=== PATIENT | male | born 1945 | race Caucasian/White ===

== ENCOUNTER 2017-03-12 12:38 | Emergency (ER) | payer OTHER ==
[~2017-03-12] VITALS: Ht 177.8 cm; Wt 88.5 kg
[~2017-03-12 12:38] MED LIST: ASPIRIN EC325 M1 PO; ATORVASTATIN CA40 MG PO; ENALAPRIL MALEA10 M1 PO; FLEXERIL PO; MOBIC15 MG PO; NORCO 5-325 TA1 EACH PO; ZOFRAN ODT4 MG PO
[2017-03-12 12:57] LABS: URINE BILIRUBIN NEGATIVE (Negative); URINE BLOOD NEGATIVE (Negative); URINE COLOR YELLOW; URINE GLUCOSE-RANDOM* NEGATIVE (Negative); URINE KETONES NEGATIVE (Negative); URINE NITRITE NEGATIVE (Negative); URINE PROTEIN (DIPSTICK) 1+ (Negative); URINE SPECIFIC GRAVITY >= 1.030 (1.003-1.035); URINE UROBILINOGEN 0.2 E.U./dl (0.2-1.0)
[2017-03-12] MEDS ORDERED: TOPROL XL25 MG PO (12:57)
[2017-03-12 13:12] LABS: BACTERIA 1-9 Few /HPF (None Seen); CASTS None Seen /LPF (None Seen); CRYSTALS None Seen /LPF (None Seen); SQUAMOUS 0-3 Few /LPF (0-3); URINE RBC None Seen /HPF (0-2); URINE WBC None Seen /HPF (0-5)
[2017-03-12 13:17] LABS: HEMATOCRIT 40.7 % (42.0-52.0); HEMOGLOBIN 13.6 gm/dL (14.0-18.0); MCH 28.8 pg (26.0-34.0); MCHC 33.4 g/dL (28.0-37.0); MCV 86.3 fL (80.0-100.0); PLATELET COUNT 188 thou/uL (150-400); RBC 4.72 mil/uL (4.50-6.00); RDW 14.7 % (10.5-14.5); WBC 8.8 thou/uL (4.0-11.0)
[2017-03-12 13:21] LABS: MANUAL DIFF YES
[2017-03-12 13:26] LABS: CREATININE 1.3 mg/dL (0.7-1.3); POTASSIUM 4.3 mmol/L (3.5-5.1)
[2017-03-12 13:37] LABS: ABSOLUTE NEUTROPHILS 7.6 thou/uL (1.4-8.2); PLATELET ESTIMATE NORMAL; TOTAL CELL COUNT 100
[2017-03-12] MEDS ORDERED: HYDROCODONE-AP1 EAC6 PO (14:09)
[2017-03-12] MEDS ORDERED: VALIUM5 MG PO (14:09)
[2017-03-12 14:23] VITALS: BP 140/90
== END 2017-03-12 14:24 | disposition home or self-care (01) ==
LOC: ER 12:38
PROVIDERS: Physician Assistant
DX: M54.5 Low back pain (principal); I10 Essential (primary) hypertension; E78.00 Pure hypercholesterolemia, unspecified; Z95.5 Presence of coronary angioplasty implant and graft; F10.99 Alcohol use, unspecified with unspecified alcohol-induced disorder; Z95.1 Presence of aortocoronary bypass graft

== ENCOUNTER 2018-10-10 06:18 | Inpatient (IN) | payer OTHER ==
[~2018-10-10] VITALS: Ht 177.8 cm; Wt 90.7 kg
[2018-10-10] VITALS (9 sets, daily range): BP systolic 109–157; BP diastolic 73–94
[~2018-10-10 06:18] MED LIST changes: +HYDROCODONE-AP1 EAC6 PO; +TOPROL XL25 MG PO; +VALIUM5 MG PO
[2018-10-10 06:43] LABS: ABSOLUTE NEUTROPHILS 3.6 thou/uL (1.4-8.2); BASOPHILS 0.9 % (0.0-2.0); EOSINOPHILS 2.8 % (0.0-3.0); HEMOGLOBIN 13.7 gm/dL (14.0-18.0); LYMPHOCYTES 24.6 % (24.0-44.0); MCH 29.6 pg (26.0-34.0); MCHC 33.3 g/dL (28.0-37.0); MCV 88.8 fL (80.0-100.0); MONOCYTES 11.4 % (1.0-8.0); PLATELET COUNT 204 thou/uL (150-400); POLYS 60.3 % (36.0-66.0); RBC 4.62 mil/uL (4.50-6.00); RDW 14.6 % (10.5-14.5); WBC 5.9 thou/uL (4.0-11.0)
[2018-10-10 06:54] LABS: ANION GAP 9 mmol/L (7-16); BUN 20 mg/dL (7-18); CALCIUM 9.7 mg/dL (8.5-10.1); CHLORIDE 103 mmol/L (98-107); CO2 26 mmol/L (21-32); CREATININE 1.5 mg/dL (0.7-1.3); GLUCOSE 117 mg/dL (74-106); POTASSIUM 4.1 mmol/L (3.5-5.1); SODIUM 138 mmol/L (136-145)
[2018-10-10 06:59] LABS: APTT 26.4 Seconds (24.5-32.8); PROTIME 10.7 Seconds (9.3-11.4)
[2018-10-10 07:05] LABS: ALBUMIN 4.4 g/dL (3.4-5.0); DIRECT BILIRUBIN 0.3 mg/dL (<0.1-0.3); MAGNESIUM 2.2 mg/dL (1.8-2.4); SGOT 23 U/L (15-37); SGPT 31 U/L (30-65); TOTAL BILIRUBIN 1.4 mg/dL (<0.1-1.0); TOTAL PROTEIN 7.6 g/dL (6.4-8.2); TROPONIN-I <0.06 ng/mL (<0.06)
--- NOTE | 2018-10-10 08:59 | EKG ---
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: CLAUDIA : 1945 Requested By: Order Number: [id number] MD: Robin Flower Measurements Intervals [place] Rate: 136 P: NC: QRS: 11 QRSD: 146 T: 179 QT: 324 QTc: 488 Interpretive Statements Atrial fibrillation Left bundle branch block Compared to ECG 03/06/2008 08:19:41 Left bundle-branch block now present Sinus rhythm no longer present Electronically Signed On 10-10-2018 8:59:10 CDT by Robin Flower [email or web address] ��������������������������������������������� <ELECTRONICALLY SIGNED> ���������������������������������������� By: Robin Flower MD, [facility] ��������������������������������������������� 10/10/18 0859 627 7 Robin Flower MD, FACC /EPI
--- NOTE | 2018-10-10 16:50 | 2DMMODE ---
[facility] [address] [place] [place] [address] 2 D/M-MODE ECHOCARDIOGRAM Name: JENNIFER LIN Room #: 201-P [facility] IN ..#: [id number] ������������� Admission: 10/10/18 ������������� Attend Phys: Farzad Villatoro MD Discharge: ��� ������������� ��� Date of : 49 Date of Service: 10/10/18 1650 �� Report #: [id number] �������� ��������������������������������������������[id number] THIS REPORT FOR: //name// APPROVED REPORT Study performed: 10/10/2018 13:13:58 EXAM: Comprehensive 2D, Doppler, and color-flow Echocardiogram Patient Location: Bedside Room #: 201 Status: routine BSA: 2.09 HR: 87 bpm BP: 136/87 mmHg Rhythm: Atrial Fibrillation Other Information Study Quality: Technically Limited Technically limited study due to poor endocardial definition. Risk Factors: Cardiac Risk Factors: HTN Indications Dyspnea S/P CABG x2 (2000) Echo Enhancing Agent Indication: Endocardial border delineation Agent(s) / Amount(s) Used: Optison 3 cc 2D Dimensions IVSd: 12.06 (7-11mm) LVOT Diam: 18.00 (18-24mm) LVDd: 42.74 mm PWd: 12.14 (7-11mm) Ascending Ao: 30.70 (22-36mm) LVDs: 30.12 (25-40mm) Aortic Root: 20.98 mm Volumes Left Atrial Volume (Systole) Single Plane 4CH: 60.83 mL Single Plane 2CH: 61.17 mL LA ESV Index: 32.00 mL/m2 Aortic Valve AoV Peak Christopher.: 1.50 m/s [facility] [address] [place] [address] 2 D/M-MODE ECHOCARDIOGRAM Name: JENNIFER LIN Ezio Room #: 201-P [facility] IN [facility]#: [id number] ������������� Admission: 10/10/18 ������������� Attend Phys: Farzad Villatoro MD Discharge: ��� ������������� ��� Date of : 49 Date of Service: 10/10/18 1650 �� Report #: [id number] �������� ��������������������������������������������[id number] AO Peak Gr.: 9.47 mmHg LVOT Max P.42 mmHg LVOT Max V: 0.77 m/s BRANDT Vmax: 1.28 cm2 Pulmonary Valve PV Peak Christopher.: 1.20 m/s PV Peak Gr.: 5.80 mmHg MI End Vmax: 2.12 m/s Tricuspid Valve TR Peak Christopher.: 2.73 m/s RAP Estimate: 15.00 mmHg TR Peak Gr.: 29.77 mmHg PA Pressure: 45.00 mmHg Left Ventricle The left ventricle is normal size. There is normal LV segmental wall motion. Mild concentric left ventricular hypertrophy. Left ventricular systolic function is normal. The left ventricular ejection fraction is within the normal range. LVEF is 55-60%. This study is not technically sufficient to allow evaluation of the LV diastolic function due to atrial fibrillation. Right Ventricle The right ventricle is normal size. The right ventricular systolic function is normal. Atria Left atrium is dilated. The right atrium size is normal. Aortic Valve The aortic valve is normal in structure. No aortic regurgitation is present. There is no aortic valvular stenosis. Mitral Valve The mitral valve leaflets are calcified. Moderate mitral regurgitation. Calculated mitral valve area is 2.3 cm2 with maximum pressure gradient of 15 mmHg and mean pressure gradient of 5.5 mmHg. Tricuspid Valve The tricuspid valve is normal in structure. Moderate to severe tricuspid regurgitation. Pulmonary artery pressure is 45 mmHg. Pulmonic Valve The pulmonary valve is normal in structure. Moderate pulmonic regurgitation. [facility] [address] [place] [address] 2 D/M-MODE ECHOCARDIOGRAM Name: JENNIFER LIN Room #: 201-P [facility] IN ..#: [id number] ������������� Admission: 10/10/18 ������������� Attend Phys: Farzad Villatoro MD Discharge: ��� ������������� ��� Date of : 49 Date of Service: 10/10/18 1650 �� Report #: [id number] �������� ��������������������������������������������[id number] Great Vessels The aortic root is normal in size. The ascending aorta is normal in size. IVC is dilated and collapses <50% with inspiration. Pericardium There is no pericardial effusion. Pleural effusion is present. <Conclusion> Left ventricular systolic function is normal. There is normal LV segmental wall motion. LVEF 55-60%. Left atrium is dilated. The aortic valve is normal in structure. No aortic regurgitation or stenosis The mitral valve leaflets are calcified. Moderate mitral regurgitation. Mild-moderate stenosis Calculated mitral valve area is 2.3 cm2, peak 15 mmHg and mean pressure gradient of 5.5 mmHg. Moderate regurgitation. Pulmonary artery pressure is 45 mmHg. There is no pericardial effusion. ��������������������������������������������� <ELECTRONICALLY SIGNED> ���������������������������������������� By: Robin Flower MD, [facility] ��������������������������������������������� 10/10/181649 49 49 Robin Flower MD, FAC /INF
[2018-10-11 03:49] LABS: CALCIUM 9.2 mg/dL (8.5-10.1); CREATININE 1.6 mg/dL (0.7-1.3); MAGNESIUM 2.1 mg/dL (1.8-2.4); POTASSIUM 4.5 mmol/L (3.5-5.1)
[2018-10-11 04:03] VITALS: BP 106/80
--- NOTE | 2018-10-11 04:28 | NUR ---
ASSUMED PT CARE AT 1900. PT A/OX4, VITAL SIGNS STABLE, ASSESSMENT CHARTED. NO COMPLAINTS OF PAIN. AFIB ON THE MONITOR, RATE CONTROLLED. PT RESTED COMFORTABLY IN BED THROUGHOUT THE NIGHT. PROGRESSING TOWARD PLAN OF CARE. WILL CONTINUE TO MONITOR.
[2018-10-11 05:00] LABS: HEMATOCRIT 37.7 % (42.0-52.0); HEMOGLOBIN 12.4 gm/dL (14.0-18.0); MCH 29.7 pg (26.0-34.0); MCHC 32.8 g/dL (28.0-37.0); MCV 90.5 fL (80.0-100.0); RBC 4.16 mil/uL (4.50-6.00); RDW 14.7 % (10.5-14.5); WBC 5.8 thou/uL (4.0-11.0)
[2018-10-11 08:14] VITALS: BP 122/72
--- NOTE | 2018-10-11 08:14 | EKG ---
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1945 Requested By: Robin Flower Order Number: [id number] MD: Robin Flower Measurements Intervals [place] Rate: 121 P: 0 PA: 236 QRS: 10 QRSD: 148 T: 178 QT: 367 QTc: 521 Interpretive Statements Atrial fibrillation with a rapid ventricular response Left bundle branch block Compared to ECG 10/10/2018 06:28:07 No significant change was found Electronically Signed On 10-11-2018 8:14:23 CDT by Robin Flower [email or web address] ��������������������������������������������� <ELECTRONICALLY SIGNED> ���������������������������������������� By: Robin Flower MD, [facility] ��������������������������������������������� 10/11/18 0814 1418 141 Robin Flower MD, [facility] /EPI
[2018-10-11 11:06] VITALS: BP 116/72
--- NOTE | 2018-10-11 11:06 | NUR ---
ASSUMED PATIENT CARE, ASSESSMENT CHARTED, VSS, SINUS TACH, NO COMPLAINTS OF PAIN OR NAUSEA, AZITHROMYCIN INFUSED, PATIENT OFF FLOOR FOR CHEST XRAY.
--- NOTE | 2018-10-11 14:11 | NUR ---
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 He cont to work and drive. THerapy evals noted and PT dc patient. Patient anticipates dc home with no needs.
[2018-10-11 15:19] VITALS: BP 109/79
[2018-10-11 20:18] VITALS: BP 133/76
--- NOTE | 2018-10-12 04:00 | NUR ---
ASSUMED PT CARE AT 1900. VSS. PT A&0X4. NO COMPLAINTS OF PAIN OR DISTRESS. PT REMAINS IN AFIB, WITH RATED THAT HAS BEEN LESS THAN 111 ALL NIGHT. PT STABLE, SLEPT WELL ALL NIGHT, WILL CONTINUE TO MONITOR
[2018-10-12 04:04] LABS: CALCIUM 9.4 mg/dL (8.5-10.1); CREATININE 1.7 mg/dL (0.7-1.3); POTASSIUM 4.3 mmol/L (3.5-5.1)
[2018-10-12 04:36] VITALS: BP 129/69
[2018-10-12 06:56] VITALS: BP 115/73
[2018-10-12] MEDS ORDERED: METOPROLOL SUCC50 MG PO (10:39)
[2018-10-12] MEDS ORDERED: CARDIZEM CD240 MG PO (10:39)
[2018-10-12] MEDS ORDERED: DEMADEX20 MG PO (10:39)
[2018-10-12] MEDS ORDERED: XARELTO15 MG PO (10:39)
[2018-10-12 11:50] VITALS: BP 127/67
[2018-10-12 11:55] VITALS: BP 127/67
--- NOTE | 2018-10-12 12:24 | NUR ---
ASSUMED CARE OF PT AT SHIFT CHANGE. ASSESSMENTS CHARTED. MEDS GIVEN PER AUG. PT ALERT AND ORIENTED, VSS, AFIB WITH BBB ON MONITOR. O2 SATS WNL ON ROOM AIR. DENIES PAIN, SOB, CP. UP AD MYRON. DC ORDERS ACKNOWLEDGED AND IMPLEMENTED. DC PAPERWORK DISCUSSED WITH PT BY ORIENTEE NURSE DIMITRY. COMMUNICATES UNDERSTANING. SCRIPTS GIVEN. IV REMOVED, TELE REMOVED. PT LEFT UNIT ACCOMPANIED BY NURSING STAFF AT APPROX 1220 WITH ALL BELONGINGS.
== END 2018-10-12 12:20 | disposition home or self-care (01) | DRG 291 ==
LOC: ER 06:18 → 2N 08:08 → EROBS 08:08 → 2N 09:29
PROVIDERS: Emergency Medicine; Hospitalist; ADMIT Internal Medicine
DX: I13.0 Hypertensive heart and chronic kidney disease with heart failure and stage 1 through stage 4 chronic kidney disease, or unspecified chronic kidney disease (principal); I50.31 Acute diastolic (congestive) heart failure; J18.9 Pneumonia, unspecified organism; D68.59 Other primary thrombophilia; E03.9 Hypothyroidism, unspecified; I25.10 Atherosclerotic heart disease of native coronary artery without angina pectoris; I48.0 Paroxysmal atrial fibrillation; N18.9 Chronic kidney disease, unspecified; I44.7 Left bundle-branch block, unspecified; Z95.1 Presence of aortocoronary bypass graft; Z79.1 Long term (current) use of non-steroidal anti-inflammatories (NSAID); Z79.899 Other long term (current) drug therapy; Z87.891 Personal history of nicotine dependence; Z79.82 Long term (current) use of aspirin
CPT/HCPCS: 10081

== ENCOUNTER → 2018-11-17 | Outpatient (CLI) | payer OTHER ==
[~2018-11-17] VITALS: Ht 175.3 cm; Wt 84.8 kg
[~2018-11-17] MED LIST changes: +CARDIZEM CD240 MG PO; +DEMADEX20 MG PO; +KLOR-CON 1010 MEQ PO; +METOPROLOL SUCC50 MG PO; +PACERONE 200 M200 M1 PO; +XARELTO15 MG PO
[2018-11-17 08:07] VITALS: BP 149/101
--- NOTE | 2018-11-17 09:34 | TEE ---
[facility] [address] [place] [address] TRANSESOPHAGEAL ECHOCARDIOGRAM Name: JENNIFER LIN Room #: REG SammJosi#: [id number] ������������� Admission: 11/17/18 ������������� Attend Phys: Robin Flower, Discharge: ��� ������������� ��� Date of : 49 Date of Service: 11/17/18 0934 �� Report #: [id number] �������� ��������������������������������������������[id number] THIS REPORT FOR: //name// APPROVED REPORT Study performed: 11/17/2018 08:48:25 EXAM: Transesophageal Echocardiogram and Cardioversion Patient Location: holding Status: routine BSA: 2.01 HR: 84 bpm BP: 139/86 mmHg Other Information Study Quality: Good Indications Atrial Fibrillation Echo Enhancing Agent Indication: Rule out Shunt Agent(s) / Amount(s) Used: Agitated Saline 6 cc Procedure After obtaining informed consent, patient underwent transesophageal echo in the [facility]. Type of Sedation : Conscious Sedation Sedation was administered by Mohamud Nicole RN. Sedation was achieved intravenously with: Versed (3) Fentanyl (100) Transesophageal probe was inserted and advanced into esophagus without difficulty by Robin Flower MD. Echo enhancement indication: R/O shunt The NKECHI was performed without complications. Synchronized Cardioversion acheived with 50, 100, then 200 Joules after 3 attempt(s). Rhythm following Synchronized Cardioversion: Normal Sinus Rhythm Throughout the procedure, the blood pressure, pulse oximetry, cardiac rhythm, and rate were monitored. The patient tolerated the procedure without adverse effects. Recovery from conscious sedation was uneventful and vital signs were stable. Left Ventricle [facility] [address] [place] [address] TRANSESOPHAGEAL ECHOCARDIOGRAM Name: JENNIFER LIN MICHAEL Room #: REG [facility]#: [id number] ������������� Admission: 11/17/18 ������������� Attend Phys: Robin Flower, Discharge: ��� ������������� ��� Date of : 49 Date of Service: 11/17/18 0934 �� Report #: [id number] �������� ��������������������������������������������[id number] The left ventricle is normal size. There is normal LV segmental wall motion. The left ventricular systolic function is normal. The left ventricular ejection fraction is within the normal range. LVEF is 60%. Right Ventricle The right ventricle is normal size. There is normal right ventricular wall thickness. The right ventricular systolic function is normal. Atria Left atrium is mildly dilated. No thrombus is visualized in the left atrium or appendage. No shunting by contrast bubble injection. The right atrium size is normal. Aortic Valve The aortic valve is normal in structure. No aortic regurgitation is present. There is no aortic valvular stenosis. Mitral Valve The mitral valve is normal in structure. Mild mitral regurgitation. No evidence of mitral valve stenosis. Tricuspid Valve The tricuspid valve is normal in structure. Moderate tricuspid regurgitation. Pulmonic Valve The pulmonary valve is normal in structure. There is no pulmonic valvular regurgitation. Great Vessels The aortic root is normal in size. Mild scattered aortic atherosclerosis. IVC is normal in size and collapses >50% with inspiration. Pericardium There is no pericardial effusion. <Conclusion> The left ventricular systolic function is normal. There is normal LV segmental wall motion. LVEF is 60%. No shunting by contrast bubble injection. Left atrium is mildly dilated. No thrombus is visualized in the left atrium or appendage. [facility] [address] [place] [address] TRANSESOPHAGEAL ECHOCARDIOGRAM Name: JENNIFER LIN Room #: REG CL [facility]#: [id number] ������������� Admission: 11/17/18 ������������� Attend Phys: Robin Flower, Discharge: ��� ������������� ��� Date of : 49 Date of Service: 11/17/18933 �� Report #: [id number] �������� ��������������������������������������������[id number] The aortic valve is normal in structure. No aortic regurgitation or stenosis. The mitral valve is normal in structure. Mild mitral regurgitation. Mild scattered aortic atherosclerosis. There is no pericardial effusion. Successful cardioversion of atrial fibrillation to sinus rhythm following 3 synchronous biphasic shocks. ��������������������������������������������� <ELECTRONICALLY SIGNED> ���������������������������������������� By: Robin Flower MD, [facility] ��������������������������������������������� 11/17/18933 3 3 Robin Flower MD, FACC /INF
== END | disposition home or self-care (01) ==
LOC: CV 06:58
DX: I70.0 Atherosclerosis of aorta (principal); I34.0 Nonrheumatic mitral (valve) insufficiency; I48.91 Unspecified atrial fibrillation; I10 Essential (primary) hypertension; E78.5 Hyperlipidemia, unspecified; Z95.1 Presence of aortocoronary bypass graft; Z79.01 Long term (current) use of anticoagulants; Z79.899 Other long term (current) drug therapy; Z79.82 Long term (current) use of aspirin

== ENCOUNTER 2019-05-08 06:23 | Emergency (ER) | payer OTHER ==
[~2019-05-08] VITALS: Ht 177.8 cm; Wt 83.9 kg
[2019-05-08 06:58] LABS: ABSOLUTE NEUTROPHILS 5.4 thou/uL (1.4-8.2); BASOPHILS 0.9 % (0.0-2.0); HEMATOCRIT 38.7 % (42.0-52.0); HEMOGLOBIN 12.5 gm/dL (14.0-18.0); LYMPHOCYTES 17.5 % (24.0-44.0); MCH 29.1 pg (26.0-34.0); MCHC 32.4 g/dL (28.0-37.0); MCV 89.7 fL (80.0-100.0); MONOCYTES 11.6 % (1.0-8.0); PLATELET COUNT 248 thou/uL (150-400); RBC 4.31 mil/uL (4.50-6.00); RDW 15.8 % (10.5-14.5); WBC 8.1 thou/uL (4.0-11.0)
[2019-05-08 07:01] LABS: ANION GAP 12 mmol/L (7-16); BUN 18 mg/dL (7-18); CALCIUM 9.9 mg/dL (8.5-10.1); CHLORIDE 105 mmol/L (98-107); CO2 26 mmol/L (21-32); CREATININE 1.7 mg/dL (0.7-1.3); GLUCOSE 97 mg/dL (74-106); POTASSIUM 4.6 mmol/L (3.5-5.1); SODIUM 143 mmol/L (136-145)
[2019-05-08 07:09] LABS: TROPONIN-I <0.06 ng/mL (<0.06)
--- NOTE | 2019-05-08 08:15 | EKG ---
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1945 Requested By: Jordy Broussard Order Number: [id number] MD: Bigg Monge Measurements Intervals [place] Rate: 55 P: 47 MN: 266 QRS: -3 QRSD: 165 T: 142 QT: 491 QTc: 470 Interpretive Statements Sinus rhythm Ventricular premature complex Prolonged MN interval Left bundle branch block Compared to ECG 10/10/2018 14:18:04 Ventricular premature complex(es) now present First degree AV block now present Atrial fibrillation no longer present Electronically Signed On 05-08-2019 8:15:26 ROLL FORM OPERATOR by Bigg Monge [email or web address] <ELECTRONICALLY SIGNED> By: Bigg Monge MD 05/08/1915 0 0 Bigg Monge MD /FERNANDA
[2019-05-08 08:28] VITALS: BP 158/80
== END 2019-05-08 08:30 | disposition left against medical advice (07) ==
LOC: ER 06:23
PROVIDERS: Emergency Medicine
DX: I11.0 Hypertensive heart disease with heart failure (principal); I50.9 Heart failure, unspecified; R06.00 Dyspnea, unspecified; E78.5 Hyperlipidemia, unspecified; I25.10 Atherosclerotic heart disease of native coronary artery without angina pectoris; I48.91 Unspecified atrial fibrillation; J44.9 Chronic obstructive pulmonary disease, unspecified; Z79.01 Long term (current) use of anticoagulants; Z95.1 Presence of aortocoronary bypass graft; Z79.82 Long term (current) use of aspirin

== ENCOUNTER → 2019-11-27 | Outpatient (CLI) | payer BC ==
[~2019-11-27] MED LIST changes: +KLOR-CON 10 ER10 MEQ PO; +TORSEMIDE20 MG PO
== END ==
LOC: SJCVCIMAG 07:48
PROVIDERS: ATTEND Internal Medicine
DX: I08.1 Rheumatic disorders of both mitral and tricuspid valves (principal); I25.810 Atherosclerosis of coronary artery bypass graft(s) without angina pectoris; I44.7 Left bundle-branch block, unspecified

== ENCOUNTER → 2019-12-07 | Outpatient (CLI) | payer BC ==
[~2019-12-07] VITALS: Ht 177.8 cm; Wt 87.1 kg
[2019-12-07 07:03] VITALS: BP 194/73
--- NOTE | 2019-12-07 11:00 | TEE ---
[facility] [place] [address] TRANSESOPHAGEAL ECHOCARDIOGRAM Name: JENNIFER LIN Room #: REG FREDY Mari#: [id number] Admission: 12/07/19 Attend Phys: Bigg Monge MD Discharge: Date of : 49 Report #: [id number] THIS REPORT FOR: cc: Inocencio Villa MD, John H. MD Lundgren, Craig H. MD [facility] ~ APPROVED REPORT Study performed: 12/07/2019 07:52:12 EXAM: Comprehensive 2D, Doppler, and color-flow Echocardiogram Patient Location: Out-Patient Room #: 9 Status: routine BSA: 2.05 HR: 40 bpm BP: 183/68 mmHg Rhythm: Atrial Fibrillation Other Information Study Quality: Good Indications Atrial Fibrillation Echo Enhancing Agent Indication: Rule out Shunt Agent(s) / Amount(s) Used: Agitated Saline 7 cc Procedure After obtaining informed consent, patient underwent transesophageal echo in the [employer] [facility]. Type of Sedation : Conscious Sedation Sedation was achieved intravenously with: Versed (4 mg) Fentanyl (150 mcg) Transesophageal probe was inserted and advanced into esophagus without difficulty by Robin Flower MD. Echo enhancement indication: R/O Septal defect. Echo enhancement agent administered: Agitated Saline The NKECHI was performed without complications. Throughout the procedure, the blood pressure, pulse oximetry, cardiac rhythm, and rate were monitored. The patient tolerated the procedure without adverse effects. Recovery [facility] [address] [place] [address] TRANSESOPHAGEAL ECHOCARDIOGRAM Name: JENNIFER LIN Room #: REG CL SammJosi#: [id number] Admission: 12/07/19 Attend Phys: Bigg Monge Discharge: Date of : 49 Report #: [id number] from conscious sedation was uneventful and vital signs were stable. Left Ventricle The left ventricle is normal size. There is normal LV segmental wall motion. There is normal left ventricular wall thickness. The left ventricular systolic function is normal. The left ventricular ejection fraction is within the normal range. LVEF is 55-60%. Right Ventricle The right ventricle is normal size. The right ventricular systolic function is normal. Atria Left atrium is at the upper limits of normal. No thrombus is visualized in the left atrium or appendage. No shunting by contrast bubble injection Right atrium is at the upper limits of normal. Aortic Valve The aortic valve is normal in structure. No aortic regurgitation is present. There is no aortic valvular stenosis. Mitral Valve Moderate mitral annular calcification.Mitral valve leaflets are calcified. Mild to moderate mitral regurgitation. No evidence of mitral valve stenosis. Tricuspid Valve The tricuspid valve is normal in structure. Mild tricuspid regurgitation. Pulmonic Valve The pulmonary valve is normal in structure. There is no pulmonic valvular regurgitation. Great Vessels The aortic root is normal in size. Mild aortic atherosclerosis, no aneurysm. IVC is normal in size and collapses >50% with inspiration. Pericardium There is no pericardial effusion. <Conclusion> The left ventricular systolic function is normal. [facility] [address] [place] [address] TRANSESOPHAGEAL ECHOCARDIOGRAM Name: JENNIFER LIN Room #: REG [facility].#: [id number] Admission: 12/07/19 Attend Phys: Bigg Monge Discharge: Date of : 49 Report #: [id number] There is normal LV segmental wall motion. LVEF is 55-60%. No shunting by contrast bubble injection No thrombus is visualized in the left atrium or appendage. The aortic valve is normal in structure. No aortic regurgitation or stenosis. Moderate mitral annular calcification.Mitral valve leaflets are calcified. Mild to moderate mitral regurgitation. Mild aortic atherosclerosis, no aneurysm There is no pericardial effusion. <ELECTRONICALLY SIGNED> By: Robin Flower MD, FACC 12/07/19 1059 1059 58 Robin Flower MD, FACC /INF
--- NOTE | 2020-01-23 10:26 | NUR ---
PER MARICRUZ HEARD RN SEDATION STARTED AT 0820, SEDATION ENDED AT 0853.
== END | disposition home or self-care (01) ==
LOC: CATH 06:39
PROVIDERS: ATTEND Internal Medicine Cardiovascular Disease
DX: I48.91 Unspecified atrial fibrillation (principal); I48.92 Unspecified atrial flutter; I08.1 Rheumatic disorders of both mitral and tricuspid valves; I70.0 Atherosclerosis of aorta; I10 Essential (primary) hypertension; E78.5 Hyperlipidemia, unspecified; I25.10 Atherosclerotic heart disease of native coronary artery without angina pectoris; I73.9 Peripheral vascular disease, unspecified; Z11.59 Encounter for screening for other viral diseases; Z98.890 Other specified postprocedural states; Z79.899 Other long term (current) drug therapy; Z95.1 Presence of aortocoronary bypass graft; Z79.01 Long term (current) use of anticoagulants

== ENCOUNTER 2019-12-11 06:34 | Observation (INO) | payer BC ==
[2019-12-11] VITALS (15 sets, daily range): BP systolic 111–152; BP diastolic 58–72
[~2019-12-11] VITALS: Ht 177.8 cm; Wt 83.4 kg
--- NOTE | ~2019-12-11 | P ---
[facility] [place] [address] PROCEDURE REPORT Name: JENNIFER LIN Room #: 210-[facility] Domenico Mari#: [id number] Admission: 12/11/19 Attend Phys: Bigg Monge MD Discharge: 12/12/19 Date of : 49 Report #: [id number] THIS REPORT FOR: cc: Inocencio Villa MD, John H. MD Couchonnal,Bigg Gilmore MD ~ CC: Inocencio Monge DATE OF SERVICE: 12/11/2019 PREOPERATIVE DIAGNOSIS: Atrial fibrillation. POSTOPERATIVE DIAGNOSES: 1. Atrial fibrillation. 2. Atrial flutter. 3. Sick sinus syndrome. 4. Left bundle-branch block. HISTORY: The patient is a 74-year-old male with a history of recurrent atrial fibrillation and symptomatic bradycardia who is here for AFib ablation. PROCEDURES PERFORMED: 1. Atrial fibrillation ablation, CPT code 97171. 3. 3D mapping, CPT code 67953. 4. Intracardiac echo, CPT code 57955. 5. Second pathway ablation, CPT code 06247. ANESTHESIA: The patient underwent general anesthesia with no anesthesia related complications. DESCRIPTION OF PROCEDURE: The patient underwent informed consent. We discussed the details of the procedure including the risks, which include but not limited to bleeding, vascular damage, stroke, [place] as well as cardiac perforation. He understood these risks and was willing to proceed. The patient was brought to EP laboratory in a fasting and sedated state and prepped and draped in a sterile fashion. I obtained access to the right femoral vein x 3, placing an 8, 9 and 7-Ethiopian short sheath using the modified Seldinger technique. Next, under fluoroscopy, I placed a decapolar catheter easily in the coronary sinus and ICE catheter in the right atrium. At baseline, the patient was in sinus rhythm with a sinus cycle length of 1590 milliseconds, ID interval 260 milliseconds, QRS duration 170 milliseconds with a left bundle branch block morphology and a QT interval of 500 milliseconds. Next, using intracardiac ultrasound, I created a 3D geometry of the left atrium with evidence of 2 left and 2 right pulmonary veins. The patient was then systemically heparinized and [facility] [address] [place] [address] PROCEDURE REPORT Name: JENNIFER LIN MICHAEL Room #: 210-[facility] Domenico Mari#: [id number] Admission: 12/11/19 Attend Phys: Bigg Monge MD Discharge: 12/12/19 Date of : 49 Report #: [id number] a transseptal was performed using an SL1 sheath and a May needle. I then exchanged the SL1 sheath for the cryo sheath and placed this into the left atrium. Next, I created a detailed 3D geometry and voltage map of the left atrium using a [employer] Pineda Lasso catheter. Next, I placed the cryoballoon into the left atrium and we started isolating the veins. I performed a 4-minute freeze followed by 90-second freeze, followed by a third freeze of 3 minutes duration. Afterwards, the vein appeared to be isolated, but I did not see acute isolation during these freezes. I then turned my attention to the left inferior pulmonary vein, performed 2 and 4-minute freezes and again did not see acute isolation, but it was isolated. Then, I turned my attention to the right superior pulmonary vein and performed a 150-second freeze with isolation of the vein. The right inferior pulmonary vein underwent a single 4-minute freeze and was isolated as well. Next, I removed the cryoballoon from the left atrium and placed the Lasso catheter and created a repeat voltage map and we had created a wide circumferential ablation of the pulmonary veins. While performing this map, we induced atrial flutter. The atrial flutter appeared to be cavotricuspid isthmus dependent, had a tachycardia cycle length of 400 milliseconds and was proximal to distal along the coronary sinus. I then moved my Lasso to the right atrium and created an activation map and this was clearly cavotricuspid isthmus dependent flutter. We therefore performed ablation using a ramp sheath and an 8 mm ablation catheter at 70 cabrera and 60 degrees. Pre-ablation, the transisthmus conduction time was 70 milliseconds; post-ablation, transisthmus conduction time was 175 milliseconds with activation sequence consistent with bidirectional block. Post-ablation, I did measure an AH interval of 135 milliseconds and HV interval of 75 milliseconds. As such, all veins were isolated and there was evidence of bidirectional block and the procedure was concluded. The patient received systemic protamine and once ACT was within acceptable range, catheters and sheaths were pulled and hemostasis was obtained. The patient awoke neurologically and hemodynamically intact. CONCLUSIONS: 1. Successful AFib ablation with wide circumferential ablation of the pulmonary veins. 2. Successful atrial flutter ablation with evidence of bidirectional block. 3. Ygqc-fv-pvuznroz infra-hisian disease with an HV interval of 75 milliseconds and a known left bundle branch block. PLAN: 1. The patient will be monitored overnight. We will discontinue beta blockers and amiodarone therapy. [facility] [address] [place] [address] PROCEDURE REPORT Name: JENNIFER LIN Room #: 210-P [facility] Domenico Mari#: [id number] Admission: 12/11/19 Attend Phys: Bigg Monge MD Discharge: 12/12/19 Date of : 49 Report #: [id number] 2. We will discuss potential pacemaker implantation at a later date if the patient continues with symptomatic bradycardia. By: [id number] Bigg Monge MD /nt
[2019-12-11 07:23] LABS: HEMATOCRIT 40.4 % (42.0-52.0); HEMOGLOBIN 13.8 gm/dL (14.0-18.0); MCH 30.6 pg (26.0-34.0); MCHC 34.1 g/dL (28.0-37.0); MCV 89.8 fL (80.0-100.0); PLATELET COUNT 244 thou/uL (150-400); RBC 4.49 mil/uL (4.50-6.00); RDW 15.7 % (10.5-14.5); WBC 7.6 thou/uL (4.0-11.0)
[2019-12-11 07:31] LABS: CALCIUM 9.6 mg/dL (8.5-10.1); CREATININE 2.1 mg/dL (0.7-1.3); POTASSIUM 3.9 mmol/L (3.5-5.1)
[2019-12-11 07:43] LABS: ALBUMIN 4.3 g/dL (3.4-5.0); APTT 31.4 Seconds (24.5-32.8); INR 1.2; PROTIME 12.1 Seconds (9.3-11.4); TOTAL BILIRUBIN 1.5 mg/dL (0.2-1.0); TOTAL PROTEIN 8.4 g/dL (6.4-8.2)
[2019-12-11] MEDS ORDERED: KLOR-CON 10 ER10 MEQ PO (07:47)
[2019-12-11] MEDS ORDERED: TORSEMIDE20 MG PO (07:47)
[2019-12-11 08:44] LABS: ABSOLUTE NEUTROPHILS 4.5 thou/uL (1.4-8.2); ANISOCYTOSIS 1+
--- NOTE | 2019-12-11 16:08 | NUR ---
PT ARRIVED POST ABLATION, RIGHT GROIN SIGHT. ALERT X4, FROM HOME ALONE, ON BEDREST FOR 6 HOURS. 1350 CHECK NOTED SIGHT SATURATED WITH BLOOD. HELD PRESSURE UNTIL 1410. SIGHT OOZING SLIGHTLY. NOTIFIED EAN BEAL FROM EP ASSESSED SIGHT WITH PRIMARY 2N RN. NEW DRESSING APPLIED WITH SECOND 4X4 DRESSING APPLIED FOR ADDED PRESSURE. RIGHT GROIN REMAINS C/D/I, POST CARDIAC INTERVENTIONS IN PLACE. VSS, DENIES PAIN, DENIES SOB. RIGHT LET IMMOBILIZED UNTILL 8PM. ADMISSION ASSESMENT, HISTORY, AND EDUCATION COMPLETED. CALL LIGHT IN REACH. CONTINUE TO MONITOR.
--- NOTE | 2019-12-11 22:34 | NUR ---
ASSUMED PT CARE, PT ASSESSED, VSS, RIGHT GROIND DRESSING CDI, NO HEMATOMA NOTED UPON PALPATION, PT DENIED PAIN, REVIEWED POC, PT VEBALIZED UNDERSTANDING, DINERO CATH REMOVED PER PT'S REQUEST AT 2114, NC ALSO REMOVED, PT AMBULATED ROOM WITH STEADY GAIT, BED ALARM TURNED OFF SINCE HE IS ORIENTED X4 AND WILL CALL IF HE NEEDS TO WALK TO THE BATHROOM. URINAL PLACED AT BEDSIDE. WILL MONITOR.
[2019-12-12 00:15] VITALS: BP 151/66
--- NOTE | 2019-12-12 03:48 | NUR ---
ASSUMED PT CARE AT 2300. PT IS SLEEPING. NO SIGN OF DISTRESS NOTED IN PT. PT IS STABLE THROUGH THE NIGHT. GROIN SITE IS INTACT. CONTINUE TO MONITOR PT.PT IS A POSSIBLE DISCHARGE HOME. DENIES ANY FURTHER NEEDS AT THIS TIME.
[2019-12-12 04:38] VITALS: BP 135/63
[2019-12-12 08:00] VITALS: BP 145/52
[2019-12-12 10:07] VITALS: BP 145/52
[2019-12-12 10:10] VITALS: BP 145/52
--- NOTE | 2019-12-12 10:21 | NUR ---
ASSUMED CARE 0700. ALERT X4, POST ABLASION DAY ONE. DR BENJAMIN REMOVED DRESSING WITH VERBAL ORDERS TO APPLY NEW DRESSING. UP WITH ACTIVITY TOLERATED. DENIES PAIN, DENIES SOB, REVIEWED DC PAPERS, REVIEWED ABLATION INFORMATION INCLUDING RIGHT GROIN SIGHT CARE. SB WITH BBB ON TELE. IV AND TELE REMOVED. DC HOME WITH SELF CARE.
== END 2019-12-12 11:30 | disposition home or self-care (01) ==
LOC: CATH 06:34 → 2N 12:29 → CATH 12-31 11:57
PROVIDERS: ADMIT Internal Medicine Cardiovascular Disease; ATTEND Internal Medicine Cardiovascular Disease
DX: I48.91 Unspecified atrial fibrillation (principal); I48.92 Unspecified atrial flutter; I49.5 Sick sinus syndrome; I44.7 Left bundle-branch block, unspecified; I10 Essential (primary) hypertension; E78.5 Hyperlipidemia, unspecified
CPT/HCPCS: 62110; 62900; 70005

== ENCOUNTER → 2020-01-31 | Outpatient (CLI) | payer BC | LOC: ULTRA 08:12 | PROVIDERS: ATTEND Hospitalist | DX: N18.3 Chronic kidney disease, stage 3 (moderate) (principal); J90 Pleural effusion, not elsewhere classified ==

== ENCOUNTER → 2020-03-12 | Outpatient (CLI) | payer OTHER | LOC: SJCVC 14:21 | PROVIDERS: ATTEND Internal Medicine Cardiovascular Disease | DX: I44.7 Left bundle-branch block, unspecified (principal); I44.0 Atrioventricular block, first degree; I48.0 Paroxysmal atrial fibrillation; I10 Essential (primary) hypertension; I25.810 Atherosclerosis of coronary artery bypass graft(s) without angina pectoris; Z95.1 Presence of aortocoronary bypass graft; E78.5 Hyperlipidemia, unspecified; I13.0 Hypertensive heart and chronic kidney disease with heart failure and stage 1 through stage 4 chronic kidney disease, or unspecified chronic kidney disease; N18.30 Chronic kidney disease, stage 3 unspecified; I50.32 Chronic diastolic (congestive) heart failure; E78.00 Pure hypercholesterolemia, unspecified; Z79.82 Long term (current) use of aspirin; Z79.899 Other long term (current) drug therapy; Z82.49 Family history of ischemic heart disease and other diseases of the circulatory system ==

== ENCOUNTER → 2020-03-21 | Outpatient (CLI) | payer OTHER ==
--- NOTE | 2020-03-21 14:09 | P ---
[facility] [place] [address] PROCEDURE REPORT Name: JENNIFER LIN Room #: REG [facility]#: [id number] Admission: 03/21/20 Attend Phys: Bigg Monge MD Discharge: Date of : 49 Report #: [id number] THIS REPORT FOR: cc: Inocencio Villa MD,Inocencio Monge,Bigg Gilmore MD ~ CC: Inocencio Monge DATE OF SERVICE: 03/21/2020 PREOPERATIVE DIAGNOSES: 1. Atrial fibrillation. 2. Left bundle branch block. PROCEDURE PERFORMED: Implantable loop recorder insertion. DESCRIPTION OF PROCEDURE: The patient underwent informed consent. He was prepped and draped in standard fashion. I injected lidocaine at the incision site. Incision was made, device was injected under the skin, a single layer of suture was performed. Surgical glue was placed in outer skin and a dressing was placed. There were no procedure related complications. The implanted device was a [employer] LINQ, model #[id number], serial #[id number]. CONCLUSIONS: Successful implantation of implantable loop recorder. <ELECTRONICALLY SIGNED> By: Bigg Monge MD 03/21/20 1409 1303 1405 Bigg Monge MD /nt
== END | disposition home or self-care (01) ==
LOC: CATH 06:39
PROVIDERS: ATTEND Internal Medicine Cardiovascular Disease
DX: I48.91 Unspecified atrial fibrillation (principal); I44.7 Left bundle-branch block, unspecified; I48.92 Unspecified atrial flutter; Z98.890 Other specified postprocedural states; Z79.899 Other long term (current) drug therapy; Z79.01 Long term (current) use of anticoagulants

== ENCOUNTER → 2020-09-19 | Outpatient (CLI) | payer OTHER | LOC: SJCVC 12:53 | PROVIDERS: ATTEND Internal Medicine Cardiovascular Disease | DX: R94.31 Abnormal electrocardiogram [ECG] [EKG] (principal); I44.0 Atrioventricular block, first degree; I44.7 Left bundle-branch block, unspecified; I48.0 Paroxysmal atrial fibrillation; I25.10 Atherosclerotic heart disease of native coronary artery without angina pectoris; E78.5 Hyperlipidemia, unspecified; I12.9 Hypertensive chronic kidney disease with stage 1 through stage 4 chronic kidney disease, or unspecified chronic kidney disease; N18.9 Chronic kidney disease, unspecified; E78.00 Pure hypercholesterolemia, unspecified; I48.92 Unspecified atrial flutter; Z98.890 Other specified postprocedural states; Z95.1 Presence of aortocoronary bypass graft; Z79.82 Long term (current) use of aspirin; Z79.899 Other long term (current) drug therapy; Z82.49 Family history of ischemic heart disease and other diseases of the circulatory system ==

== ENCOUNTER → 2020-09-24 | Outpatient (CLI) | payer OTHER | LOC: SJCVC 08:53 | PROVIDERS: ATTEND Internal Medicine | DX: I10 Essential (primary) hypertension (principal) ==

== ENCOUNTER → 2021-03-18 | Outpatient (CLI) | payer OTHER | LOC: SJCVC 13:31 | PROVIDERS: ATTEND Internal Medicine Cardiovascular Disease | DX: R94.31 Abnormal electrocardiogram [ECG] [EKG] (principal); I48.0 Paroxysmal atrial fibrillation; I44.7 Left bundle-branch block, unspecified; I25.10 Atherosclerotic heart disease of native coronary artery without angina pectoris; E78.00 Pure hypercholesterolemia, unspecified; I10 Essential (primary) hypertension; I73.9 Peripheral vascular disease, unspecified; Z95.1 Presence of aortocoronary bypass graft; Z79.82 Long term (current) use of aspirin; Z79.899 Other long term (current) drug therapy ==